=== PATIENT | female | born 1940 | race Caucasian/White ===

== ENCOUNTER 2019-02-27 16:53 | Emergency (ER) | payer MEDICARE, OTHER ==
[~2019-02-27] VITALS: Ht 162.6 cm; Wt 77.3 kg
[~2019-02-27 16:53] MED LIST: ACET500C5 PO; CEPH-443 PO
[2019-02-27 16:59] VITALS: Ht 162.6 cm; Wt 77.3 kg
[2019-02-27] MEDS ORDERED: ONDANSETRON 4 MG INJ IV STA (17:15)
[2019-02-27] MEDS ORDERED: SODIUM CHLORIDE 0.9% 1L BAG IV* STA (17:15)
[2019-02-27] MEDS ORDERED: CEFEPIME 2GM/50 ML (PMX) 50 ML IVPB STA (17:15)
[2019-02-27] MEDS ORDERED: ACETAMINOPHEN 325 MG TAB PO STA (17:15)
[2019-02-27] MEDS ORDERED: VANCOMYCIN 1 GM (PMX) 250 ML IVPB ONE (17:30)
[2019-02-27] MEDS ORDERED: PIPER-TAZO 3.375 GM IV (PMX) 100 ML IVPB ONE (18:30)
[2019-02-27 19:40] VITALS: BP 119/54; PULSE 77; RESP 20
== END 2019-02-27 20:10 | disposition home or self-care (01) ==
LOC: E/R 16:53
DX: N39.0 Urinary tract infection, site not specified (principal); R40.2142 Coma scale, eyes open, spontaneous, at arrival to emergency department; R40.2362 Coma scale, best motor response, obeys commands, at arrival to emergency department; R40.2252 Coma scale, best verbal response, oriented, at arrival to emergency department; R53.1 Weakness; Z91.010 Allergy to peanuts
CPT/HCPCS: 36415; 71045; 80053; 81001; 83605; 84484; 85025; 85610; 85730; 87040; 87086; 93005; 96361; 96374; 96375; 99285; J0692; J2405; J2543; J7030; J3370